=== PATIENT | female | born 1940 | race Caucasian/White ===

== ENCOUNTER 2018-03-20 06:09 | Day surgery (SDC) | payer MEDICARE ==
[~2018-03-20] VITALS: Ht 157.5 cm; Wt 61.1 kg
[~2018-03-20 06:09] MED LIST: ALBU8.5H8 IH; ASPI-555 PO; GLIM4TAB3 PO; METF500T6 PO
[2018-03-20] MEDS ORDERED: SODIUM CHLORIDE 0.9% 1000ML 1,000 ML IV ONE (06:48)
[2018-03-20 07:06] VITALS: BP 114/55
[2018-03-20] MEDS ORDERED: PROPOFOL 10 MG/ML 20ML VIAL IV ONE (08:31)
[2018-03-20] MEDS ORDERED: PHENYLEPHRINE HCL 10 MG/ML 1ML VIAL IV ONE (08:42)
[2018-03-20 08:51] VITALS: BP 97/42
== END 2018-03-20 09:19 ==
LOC: DAH 06:09 → ENDO 06:09
PROVIDERS: ATTEND Internal Medicine Gastroenterology
DX: Z12.11 Encounter for screening for malignant neoplasm of colon (principal); K57.30 Diverticulosis of large intestine without perforation or abscess without bleeding; Z98.0 Intestinal bypass and anastomosis status; Z85.038 Personal history of other malignant neoplasm of large intestine; I25.10 Atherosclerotic heart disease of native coronary artery without angina pectoris; E11.9 Type 2 diabetes mellitus without complications; J44.9 Chronic obstructive pulmonary disease, unspecified; Z90.49 Acquired absence of other specified parts of digestive tract; Z95.1 Presence of aortocoronary bypass graft; Z98.890 Other specified postprocedural states; Z83.3 Family history of diabetes mellitus; Z88.8 Allergy status to other drugs, medicaments and biological substances; F17.210 Nicotine dependence, cigarettes, uncomplicated; Z68.26 Body mass index [BMI] 26.0-26.9, adult; Z79.84 Long term (current) use of oral hypoglycemic drugs
CPT/HCPCS: 45380; 82948 ×2; 88305; 93005; A4606; J2370; J2704; J7030

== ENCOUNTER → 2018-08-22 | Outpatient (CLI) | payer MEDICARE ==
[~2018-08-22] MED LIST changes: +METF-444 PO; -METF500T6 PO
== END | disposition home or self-care (01) ==
LOC: RAH 09:42
PROVIDERS: ATTEND Internal Medicine Hematology & Oncology
DX: R22.32 Localized swelling, mass and lump, left upper limb (principal)
CPT/HCPCS: 76882

== ENCOUNTER 2020-01-26 18:32 | Observation (INO) | payer MEDICARE ==
[~2020-01-26] VITALS: Ht 157.5 cm; Wt 59.7 kg
[2020-01-26] MEDS: PANTOPRAZOLE SODIUM 40 MG TABLET.DR PO SCH (09:40)
[~2020-01-26 18:32] MED LIST changes: -GLIM4TAB3 PO; +GLIM4TAB36 PO
[2020-01-26 19:23] LABS: CREATININE 1.4 mg/dL (0.5-1.5)
[2020-01-26 19:27] LABS: BASOPHILS % (AUTO) 0.5 % (0.0-5.0); EOSINOPHILS % (AUTO) 0.5 % (0.0-8.0); HEMATOCRIT 34.5 % (36-48); LYMPHOCYTES % (AUTO) 25.6 % (21.0-51.0); MEAN CORPUSCULAR HEMOGLOBIN 33.5 pg (27.0-33.0); MEAN CORPUSCULAR HGB CONC 33.3 g/dL (32.0-36.0); MEAN CORPUSCULAR VOLUME 100.6 fL (79-99); MONOCYTES % (AUTO) 10.1 % (3.0-13.0); PLATELET COUNT (AUTO) 177 K/uL (130-400); RED BLOOD CELL COUNT(AUTO) 3.43 MIL/uL (4.00-5.50); RED CELL DISTRIBUTION WIDTH 13.6 % (11.0-15.5); WHITE BLOOD COUNT (AUTO) 6.3 K/uL (4.8-10.8)
[2020-01-26 19:28] LABS: ALBUMIN 3.8 g/dL (3.5-5.0); BILIRUBIN,TOTAL 0.3 mg/dL (0.2-1.0); TOTAL PROTEIN, SERUM 7.1 g/dL (6.0-8.3)
[2020-01-26 19:30] LABS: PARTIAL THROMBOPLASTIN TIME 23.5 SEC (26.3-35.5); PROTHROMBIN TIME 10.5 SEC (9.6-11.6)
[2020-01-26 19:35] LABS: B-TYPE NATRIURETIC PEPTIDE 345 pg/mL (0-100)
[2020-01-26 19:45] LABS: APPEARANCE,URINE Clear (CLEAR); BILIRUBIN,URINE Negative (NEGATIVE); COLOR,URINE Yellow (YELLOW); GLUCOSE, URINE (UA) Negative (NEGATIVE); KETONES,URINE Negative (NEGATIVE); LEUKOCYTE ESTERASE ,URINE Moderate (NEGATIVE); NITRATE,URINE Negative (NEGATIVE); OCCULT BLOOD,URINE Negative (NEGATIVE); PROTEIN,URINE Negative (NEGATIVE); UROBILINOGEN,URINE 0.2 mg/dL (0.2-1.0)
[2020-01-26] MEDS ORDERED: ASPIRIN 325 MG TABLET ONE (20:09)
[2020-01-26 20:14] LABS: RBC,URINE 0-1 /HPF (0-1)
[2020-01-26] MEDS ORDERED: IPRATROPIUM/ALBUTEROL SULFATE 3 ML SOLUTION IH ONE (20:14)
[2020-01-26 20:15] LABS: SQUAMOUS EPITHELIAL CELL,UR Rare /HPF (0-2)
[2020-01-26 20:16] LABS: BACTERIA,URINE Moderate /HPF (None Seen)
[2020-01-26] MEDS ORDERED: LEVOFLOXACIN 500 MG/D5W 100 ML 100 ML ONE (22:29)
[2020-01-26] MEDS ORDERED: NITROGLYCERIN 1GM/1 INCH PACKET TD ONE (22:38)
[2020-01-26] MEDS ORDERED: METHYLPREDNISOLONE SOD SUCC 125MG/2ML VIAL ONE (22:38)
[2020-01-26] MEDS ORDERED: PANTOPRAZOLE SODIUM 40 MG TABLET.DR ONE (23:07)
[2020-01-26] MEDS ORDERED: METHYLPREDNISOLONE SOD SUCC 40MG/ML 1ML IVP SCH (23:26)
[2020-01-26] MEDS ORDERED: ONDANSETRON HCL 4 MG/2 ML VIAL IVP PRN (23:30)
[2020-01-26] MEDS ORDERED: ACETAMINOPHEN 325 MG TAB PO PRN (23:30)
[2020-01-26] MEDS ORDERED: SODIUM CHLORIDE 0.9% 1000ML 1,000 ML IV SCH (23:30)
[2020-01-26] MEDS ORDERED: IPRATROPIUM/ALBUTEROL SULFATE 3 ML SOLUTION IH PRN (23:45)
[2020-01-27] MEDS: IPRATROPIUM/ALBUTEROL SULFATE 3 ML SOLUTION IH SCH ×3 (01:09→11:20)
[2020-01-27 02:15] LABS: TROPONIN I 0.05 ng/mL (0.00-0.06)
[2020-01-27] MEDS ORDERED: IPRATROPIUM/ALBUTEROL SULFATE 3 ML SOLUTION IH ONE (06:44)
[2020-01-27] MEDS ORDERED: ASPIRIN 81MG TAB.CHEW ONE (07:29)
[2020-01-27] MEDS ORDERED: METHYLPREDNISOLONE SOD SUCC 40MG/ML 1ML ONE (07:29)
[2020-01-27] MEDS ORDERED: SODIUM CHLORIDE 0.9% 1000ML 1,000 ML IV ONE (07:37)
[2020-01-27 08:03] LABS: BASOPHILS % (AUTO) 0.4 % (0.0-5.0); EOSINOPHILS % (AUTO) 0.4 % (0.0-8.0); HEMATOCRIT 31.8 % (36-48); LYMPHOCYTES % (AUTO) 33.5 % (21.0-51.0); MEAN CORPUSCULAR HEMOGLOBIN 32.5 pg (27.0-33.0); MEAN CORPUSCULAR HGB CONC 32.4 g/dL (32.0-36.0); MEAN CORPUSCULAR VOLUME 100.3 fL (79-99); MONOCYTES % (AUTO) 10.8 % (3.0-13.0); NEUTROPHILS % (AUTO) 54.7 % (40.0-77.0); PLATELET COUNT (AUTO) 150 K/uL (130-400); RED BLOOD CELL COUNT(AUTO) 3.17 MIL/uL (4.00-5.50); RED CELL DISTRIBUTION WIDTH 13.5 % (11.0-15.5); WHITE BLOOD COUNT (AUTO) 4.7 K/uL (4.8-10.8)
[2020-01-27 08:26] LABS: CREATININE 1.2 mg/dL (0.5-1.5)
[2020-01-27 08:29] LABS: ALBUMIN 3.2 g/dL (3.5-5.0); BILIRUBIN,TOTAL 0.3 mg/dL (0.2-1.0); TOTAL PROTEIN, SERUM 6.2 g/dL (6.0-8.3)
[2020-01-27] MEDS ORDERED: METHYLPREDNISOLONE SOD SUCC 40MG/ML 1ML IVP SCH (09:00)
[2020-01-27] MEDS ORDERED: ASPIRIN 81MG TAB.CHEW PO SCH (09:00)
[2020-01-27 09:30] VITALS: BP 116/70
[2020-01-27] MEDS: PANTOPRAZOLE SODIUM 40 MG TABLET.DR PO SCH (09:40)
[2020-01-27] MEDS ORDERED: METFORMIN HCL 500 MG TABLET PO SCH (10:52)
[2020-01-27 11:00] VITALS: BP 114/44
[2020-01-27] MEDS ORDERED: GLIMEPIRIDE 2 MG TABLET PO SCH (11:12)
[2020-01-27] MEDS ORDERED: INSULIN HUMULIN R 100 UNIT/ML 3ML SQ SCH (11:30)
[2020-01-27] MEDS ORDERED: ROSU10TA22 PO (11:41)
[2020-01-27] MEDS ORDERED: TORS5TAB12 PO (11:41)
[2020-01-27] MEDS ORDERED: MULT-1192 PO (11:41)
[2020-01-27] MEDS ORDERED: PRED20TA3 PO (14:23)
[2020-01-27] MEDS ORDERED: LEVO500T2 PO (14:23)
--- NOTE | 2020-01-27 16:28 | NUR ---
pt stated understanding of all d/c instructions including antibiotic perscription for uti and steroid script for copd exacerbation; iv access removed and pt's here to take her home; she wants to eat prior to leaving; she undrstands to call tuesday and make f/u appointment with dr ramos and return to ed for any complications.
[2020-01-28] MEDS ORDERED: ASPIRIN 81 MG EC TAB PO SCH (09:00)
[2020-01-28] MEDS ORDERED: LEVOFLOXACIN 500 MG/D5W 100 ML 100 ML IV SCH (21:00)
== END 2020-01-27 16:45 | disposition home or self-care (01) ==
LOC: EDH 18:32 → EDHIP 22:55 → INTOOBSV 22:55 → 4BH 01-27 09:13
PROVIDERS: ADMIT Internal Medicine Critical Care Medicine; ATTEND Internal Medicine Critical Care Medicine
DX: J42 Unspecified chronic bronchitis (principal); N39.0 Urinary tract infection, site not specified; E11.9 Type 2 diabetes mellitus without complications; C18.9 Malignant neoplasm of colon, unspecified; I25.10 Atherosclerotic heart disease of native coronary artery without angina pectoris; Z95.1 Presence of aortocoronary bypass graft; Z88.5 Allergy status to narcotic agent; Z90.49 Acquired absence of other specified parts of digestive tract; Z72.0 Tobacco use
CPT/HCPCS: 36415 ×2; 71045 ×2; 80053 ×2; 81001; 82150; 82550 ×2; 82948; 83605; 83690; 83874; 83880; 84484 ×3; 85025 ×2; 85610; 85730; 87040 ×2; 87077; 87088; 87186; 87804 ×2; 93005; 94640 ×4; 94664; 99291; G0378 ×3; J1956; J2920; J2930; J7030

== ENCOUNTER 2020-01-31 04:29 | Emergency (ER) | payer MEDICARE ==
[~2020-01-31 04:29] MED LIST changes: +LEVO500T2 PO; +MULT-1192 PO; +PRED20TA3 PO; +ROSU10TA22 PO; +TORS5TAB12 PO
[2020-01-31] MEDS ORDERED: LIDOCAINE HCL 2% VISCOUS 15 ML UDCUP ONE (04:58)
[2020-01-31] MEDS ORDERED: MAG HYDROX/AL HYDROX/SIMETH ES 30 ML SUSP UDCUP ONE (04:58)
[2020-01-31 05:16] LABS: BASOPHILS % (AUTO) 0.1 % (0.0-5.0); HEMATOCRIT 32.1 % (36-48); LYMPHOCYTES % (AUTO) 5.1 % (21.0-51.0); MEAN CORPUSCULAR HGB CONC 32.7 g/dL (32.0-36.0); MEAN CORPUSCULAR VOLUME 100.9 fL (79-99); NEUTROPHILS % (AUTO) 89.5 % (40.0-77.0); PLATELET COUNT (AUTO) 176 K/uL (130-400); RED BLOOD CELL COUNT(AUTO) 3.18 MIL/uL (4.00-5.50); RED CELL DISTRIBUTION WIDTH 13.8 % (11.0-15.5); WHITE BLOOD COUNT (AUTO) 9.1 K/uL (4.8-10.8)
[2020-01-31 05:24] LABS: CREATININE 1.6 mg/dL (0.5-1.5); POTASSIUM 4.2 mmol/L (3.5-5.1)
[2020-01-31 05:41] LABS: B-TYPE NATRIURETIC PEPTIDE 237 pg/mL (0-100)
== END 2020-01-31 06:24 | disposition home or self-care (01) ==
LOC: EDH 04:29
DX: K21.0 Gastro-esophageal reflux disease with esophagitis (principal); E11.9 Type 2 diabetes mellitus without complications; Z85.038 Personal history of other malignant neoplasm of large intestine; Z95.1 Presence of aortocoronary bypass graft; Z88.6 Allergy status to analgesic agent; Z72.0 Tobacco use
CPT/HCPCS: 36415; 71045; 80048; 83880; 84484; 85025; 93005

== ENCOUNTER 2020-06-09 10:34 | Emergency (ER) | payer MEDICARE ==
[~2020-06-09 10:34] MED LIST changes: -ASPI-555 PO; +ASPI-556 PO
[2020-06-09 12:22] LABS: BASOPHILS % (AUTO) 0.3 % (0.0-5.0); EOSINOPHILS % (AUTO) 0.5 % (0.0-8.0); HEMATOCRIT 35.9 % (36-48); LYMPHOCYTES % (AUTO) 19.8 % (21.0-51.0); MEAN CORPUSCULAR HEMOGLOBIN 32.3 pg (27.0-33.0); MEAN CORPUSCULAR HGB CONC 33.1 g/dL (32.0-36.0); MEAN CORPUSCULAR VOLUME 97.6 fL (79-99); NEUTROPHILS % (AUTO) 68.9 % (40.0-77.0); PLATELET COUNT (AUTO) 198 K/uL (130-400); RED BLOOD CELL COUNT(AUTO) 3.68 MIL/uL (4.00-5.50); WHITE BLOOD COUNT (AUTO) 6.6 K/uL (4.8-10.8)
[2020-06-09 12:37] LABS: CREATININE 1.2 mg/dL (0.5-1.5); POTASSIUM 3.9 mmol/L (3.5-5.1)
[2020-06-09 12:39] LABS: INR 0.99 (0.85-1.15); PARTIAL THROMBOPLASTIN TIME 24.5 SEC (26.3-35.5); PROTHROMBIN TIME 10.7 SEC (9.6-11.6)
[2020-06-09 12:46] LABS: ALBUMIN 3.5 g/dL (3.5-5.0); BILIRUBIN,TOTAL 0.6 mg/dL (0.2-1.0); TOTAL PROTEIN, SERUM 6.6 g/dL (6.0-8.3)
[2020-06-09 13:04] LABS: B-TYPE NATRIURETIC PEPTIDE 1230 pg/mL (0-100)
[2020-06-09] MEDS ORDERED: FUROSEMIDE 10 MG/ML 4ML VIAL ONE (13:29)
== END 2020-06-09 15:18 | disposition home or self-care (01) ==
LOC: EDH 10:34
DX: J90 Pleural effusion, not elsewhere classified (principal); M79.89 Other specified soft tissue disorders; E11.9 Type 2 diabetes mellitus without complications; K21.9 Gastro-esophageal reflux disease without esophagitis; Z87.891 Personal history of nicotine dependence; Z88.6 Allergy status to analgesic agent
CPT/HCPCS: 36415; 71045; 71250; 80053; 82550; 83880; 84484; 85025; 85610; 85730; 93005; 93971; 96374; 99285; J1940

== ENCOUNTER 2020-06-12 08:40 | Inpatient (IN) | payer MEDICARE ==
[~2020-06-12] VITALS: Ht 154.9 cm; Wt 53.5 kg
[2020-06-12 09:31] LABS: BASOPHILS % (AUTO) 0.1 % (0.0-5.0); LYMPHOCYTES % (AUTO) 7.2 % (21.0-51.0); MEAN CORPUSCULAR HEMOGLOBIN 32.4 pg (27.0-33.0); MEAN CORPUSCULAR HGB CONC 33.4 g/dL (32.0-36.0); MEAN CORPUSCULAR VOLUME 96.9 fL (79-99); MONOCYTES % (AUTO) 4.2 % (3.0-13.0); NEUTROPHILS % (AUTO) 87.9 % (40.0-77.0); PLATELET COUNT (AUTO) 219 K/uL (130-400); RED BLOOD CELL COUNT(AUTO) 3.92 MIL/uL (4.00-5.50); RED CELL DISTRIBUTION WIDTH 13.1 % (11.0-15.5); WHITE BLOOD COUNT (AUTO) 9.6 K/uL (4.8-10.8)
[2020-06-12 10:08] LABS: ALBUMIN 4.1 g/dL (3.5-5.0); BILIRUBIN,TOTAL 0.9 mg/dL (0.2-1.0); CREATININE 1.4 mg/dL (0.5-1.5); POTASSIUM 4.2 mmol/L (3.5-5.1); TOTAL PROTEIN, SERUM 7.6 g/dL (6.0-8.3)
[2020-06-12 10:09] LABS: INR 0.99 (0.85-1.15); PARTIAL THROMBOPLASTIN TIME 27.1 SEC (26.3-35.5); PROTHROMBIN TIME 10.7 SEC (9.6-11.6)
[2020-06-12] MEDS ORDERED: FUROSEMIDE 10 MG/ML 4ML VIAL ONE (11:11)
[2020-06-12] MEDS ORDERED: DILTIAZEM HCL 125 MG/25 ML VIAL IV ONE (11:13)
[2020-06-12] MEDS ORDERED: DILTIAZEM HCL 5 MG/ML 10 ML VIAL IV ONE (11:13)
[2020-06-12] MEDS ORDERED: INSULIN HUMULIN R 100 UNIT/ML 3ML ONE (11:13)
[2020-06-12] MEDS ORDERED: SODIUM CHLORIDE 0.9% 100 ML IV ONE (11:14)
[2020-06-12] MEDS ORDERED: PANT40TA25 PO (15:28)
[2020-06-12] MEDS ORDERED: GLIP5TAB11 PO (15:28)
[2020-06-12 15:49] VITALS: BP 103/82
[2020-06-12] MEDS ORDERED: LACTULOSE 20 GM/30 ML UDCUP PO PRN (16:45)
[2020-06-12] MEDS ORDERED: ZOLPIDEM TARTRATE 5 MG TAB PO PRN (16:45)
[2020-06-12] MEDS ORDERED: LOPERAMIDE 1 MG/7.5 ML UDCUP PO PRN (16:45)
[2020-06-12] MEDS ORDERED: ACETAMINOPHEN 325 MG TAB PO PRN (16:45)
[2020-06-12] MEDS ORDERED: ONDANSETRON HCL 4 MG/2 ML VIAL IVP PRN (16:45)
[2020-06-12] MEDS ORDERED: HYDRALAZINE HCL 20 MG/ML VIAL IV PRN (16:45)
[2020-06-12] MEDS: METOPROLOL TARTRATE 1 MG/ML 5ML VIAL IV ONE ×2 (17:41→17:51)
[2020-06-12] MEDS ORDERED: DIGOXIN 250 MCG/ML 2ML AMP ONE (17:41)
[2020-06-12 17:55] VITALS: BP 103/43
[2020-06-12 18:00] VITALS: BP 79/44
[2020-06-12] MEDS: DIGOXIN 250 MCG/ML 2ML AMP IV SCH ×2 (18:00→19:33)
[2020-06-12 18:15] VITALS: BP 84/38
[2020-06-12 18:30] VITALS: BP 90/44
--- NOTE | 2020-06-12 19:15 | NUR ---
RECEIVED REPORT FROM STEFANO AGGARWAL. PT HAS NEW ONSET OF AFIB RVR. PT HAVING LOW BLOOD PRESSURE 80s/50s. PT DENIES CHEST PAIN OR ANY DISCOMFORT.
[2020-06-12 19:40] VITALS: BP 90/50
[2020-06-12] MEDS: FUROSEMIDE 10 MG/ML 4ML VIAL IV SCH (20:04)
[2020-06-12] MEDS: APIXABAN 5 MG TABLET PO SCH (20:11)
[2020-06-12] MEDS ORDERED: METOPROLOL TARTRATE 1 MG/ML 5ML VIAL IV SCH (20:30)
[2020-06-12] MEDS: METOPROLOL TARTRATE 25 MG TAB PO SCH (21:00)
[2020-06-12] MEDS ORDERED: DEXTROSE 50%-WATER 50 ML DISP.SYRIN IV PRN (23:45)
[2020-06-12] MEDS ORDERED: GLUCAGON 1MG KIT 1 MG ML IM PRN (23:45)
[2020-06-13] VITALS (7 sets, daily range): BP systolic 79–106; BP diastolic 40–65
[2020-06-13] MEDS: FUROSEMIDE 10 MG/ML 4ML VIAL IV SCH ×2 (04:45→16:32)
[2020-06-13] MEDS: INSULIN HUMULIN R 100 UNIT/ML 3ML SQ SCH ×4 (05:59→21:00)
[2020-06-13 06:26] LABS: HEMATOCRIT 35.7 % (36-48); MEAN CORPUSCULAR HEMOGLOBIN 31.8 pg (27.0-33.0); MEAN CORPUSCULAR HGB CONC 32.5 g/dL (32.0-36.0); MEAN CORPUSCULAR VOLUME 97.8 fL (79-99); RED BLOOD CELL COUNT(AUTO) 3.65 MIL/uL (4.00-5.50); RED CELL DISTRIBUTION WIDTH 13.1 % (11.0-15.5)
[2020-06-13 06:38] LABS: INR 1.04 (0.85-1.15); PARTIAL THROMBOPLASTIN TIME 26.9 SEC (26.3-35.5); PROTHROMBIN TIME 11.2 SEC (9.6-11.6)
[2020-06-13 07:03] LABS: ALBUMIN 3.1 g/dL (3.5-5.0); BILIRUBIN,TOTAL 0.5 mg/dL (0.2-1.0); CREATININE 1.2 mg/dL (0.5-1.5); MAGNESIUM 1.6 mg/dL (1.80-2.40); PHOSPHORUS 3.9 mg/dL (2.5-4.9); TOTAL PROTEIN, SERUM 6.3 g/dL (6.0-8.3)
[2020-06-13] MEDS: ATORVASTATIN CALCIUM 20 MG TABLET PO SCH (09:02)
[2020-06-13] MEDS: ASPIRIN 81 MG EC TAB PO SCH (09:02)
[2020-06-13] MEDS: METOPROLOL TARTRATE 25 MG TAB PO SCH ×3 (09:02→21:49)
[2020-06-13] MEDS: PANTOPRAZOLE SODIUM 40 MG TABLET.DR PO SCH (09:02)
[2020-06-13] MEDS: APIXABAN 5 MG TABLET PO SCH ×2 (09:02→21:48)
--- NOTE | 2020-06-13 14:27 | NUR ---
CHART CHECK COMPLETED. Pt IS AN 80 Y.O. FEMALE ADMITTED SECONDARY TO CHEST PAIN. Pt HAS A PAST MEDICAL HISTORY SIGNIFICANT FOR DM, COLON CA S/P RESECTION, CAD S/P CABG, AND SMOKER. Pt CURRENTLY ON REGULAR TEXTURE, THIN LIQUID DIET (HEART HEALTHY). PLEASE REQUEST FORMAL SKILLED SPEECH/SWALLOW EVALUATION IF Pt PRESENTS WITH +S/S OF ASPIRATION SUCH COUGH RESPONSE, THROAT CLEAR, OR WET VOCAL QUALITY. Addendum: 06/13/20 at 1432 by AMPARO SHORT, [facility] Amended: Links added.
--- NOTE | 2020-06-13 19:45 | NUR ---
cm note met with patient and states resides athome with spouse, independent with adls and uses walker for ambulatioin, has w/c and shower chair she uses at times. staes she cooks, and drives. dc plan is back to home at nd. no dc needs. Addendum: 06/13/20 at 1948 by ARIANNE ENGLISH CM Amended: Links added.
[2020-06-13] MEDS: MAGNESIUM 2GM PREMIX 50ML 50 ML IV SCH (21:52)
[2020-06-13] MEDS: DIGOXIN 125 MCG TABLET PO SCH (21:59)
[2020-06-14] VITALS (8 sets, daily range): BP systolic 77–114; BP diastolic 38–61
[2020-06-14] MEDS ORDERED: FUROSEMIDE 10 MG/ML 4ML VIAL IV SCH (04:45)
--- NOTE | 2020-06-14 05:10 | NUR ---
NEW ORDER FROM [facility], ASHLY 500ML BOLUS, D/T PT CONTINUED WITH LOW BLOOD PRESSURES, 70s/50s - 80s/50s. HEART RATE RANGES FROM 120s-140s. ASYMPTOMATIC. NEW ORDER TO NOT GIVE LASIX 20MG THIS AM. PT TO BE STRICT BEDREST.
[2020-06-14] MEDS ORDERED: SODIUM CHLORIDE 0.9% 500ML 500 ML IV ONE ×2 (05:15)
[2020-06-14] MEDS: INSULIN HUMULIN R 100 UNIT/ML 3ML SQ SCH ×4 (06:09→20:37)
[2020-06-14] MEDS: DIGOXIN 125 MCG TABLET PO SCH (08:39)
[2020-06-14] MEDS: APIXABAN 5 MG TABLET PO SCH ×2 (08:39→20:27)
[2020-06-14] MEDS: ATORVASTATIN CALCIUM 20 MG TABLET PO SCH (08:40)
[2020-06-14] MEDS: METOPROLOL TARTRATE 25 MG TAB PO SCH ×2 (08:40→13:41)
[2020-06-14] MEDS: ASPIRIN 81 MG EC TAB PO SCH (08:40)
[2020-06-14] MEDS: PANTOPRAZOLE SODIUM 40 MG TABLET.DR PO SCH (08:40)
[2020-06-14] MEDS ORDERED: AMIODARONE HCL 900 MG in DEXTROSE 5%-WATER 500 ML IV SCH (11:00)
[2020-06-14] MEDS ORDERED: AMIODARONE HCL 150 MG in DEXTROSE 5%-WATER 100 ML IV SCH (11:00)
[2020-06-14] MEDS ORDERED: METOPROLOL TARTRATE 1 MG/ML 5ML VIAL IV PRN (11:00)
[2020-06-14] MEDS ORDERED: AMIODARONE HCL 450 MG in DEXTROSE 5%-WATER 250 ML IV SCH (11:15)
[2020-06-14 11:34] LABS: CREATININE 1.3 mg/dL (0.5-1.5)
[2020-06-14 11:39] LABS: ALBUMIN 3.1 g/dL (3.5-5.0); BILIRUBIN,TOTAL 0.5 mg/dL (0.2-1.0); TOTAL PROTEIN, SERUM 6.4 g/dL (6.0-8.3)
--- NOTE | 2020-06-14 13:26 | NUR ---
benchmark paged jackson
[2020-06-14] MEDS ORDERED: FUROSEMIDE 10 MG/ML 2ML VIAL ONE (13:46)
[2020-06-14] MEDS ORDERED: FUROSEMIDE 10 MG/ML 2ML VIAL IV STA (14:15)
[2020-06-14] MEDS ORDERED: PHENYLEPHRINE HCL 100 MG in SODIUM CHLORIDE 0.9% 250 ML IV PRN (15:30)
[2020-06-14] MEDS: FUROSEMIDE 10 MG/ML 2ML VIAL IV SCH (20:27)
[2020-06-15] MEDS: METOPROLOL TARTRATE 25 MG TAB PO SCH ×4 (00:48→20:14)
[2020-06-15] MEDS: FUROSEMIDE 10 MG/ML 2ML VIAL IV SCH ×2 (04:20→11:10)
[2020-06-15 04:30] VITALS: BP 91/37
[2020-06-15] MEDS: INSULIN HUMULIN R 100 UNIT/ML 3ML SQ SCH ×4 (05:55→20:35)
[2020-06-15 08:00] VITALS: BP 107/50
[2020-06-15] MEDS: PANTOPRAZOLE SODIUM 40 MG TABLET.DR PO SCH (08:30)
[2020-06-15] MEDS: ATORVASTATIN CALCIUM 20 MG TABLET PO SCH (08:30)
[2020-06-15] MEDS: APIXABAN 5 MG TABLET PO SCH ×2 (08:31→20:15)
[2020-06-15] MEDS: ASPIRIN 81 MG EC TAB PO SCH (08:31)
[2020-06-15] MEDS: DIGOXIN 125 MCG TABLET PO SCH (08:33)
--- NOTE | 2020-06-15 11:05 | NUR ---
DR. JONES IS IN TO SEE PATIENT.
[2020-06-15 12:00] VITALS: BP 106/49
--- NOTE | 2020-06-15 12:34 | NUR ---
KATELYNN FOSTER IS MAKING HER ROUNDS.
[2020-06-15 16:00] VITALS: BP 101/48
[2020-06-15 19:30] VITALS: BP 112/48
[2020-06-15 23:30] VITALS: BP 106/49
[2020-06-16] VITALS (8 sets, daily range): BP systolic 96–119; BP diastolic 47–95
--- NOTE | 2020-06-16 03:01 | NUR ---
STATUS Pt sleeping,respirations even and unlabored.Heart rate a fib 100's with frequent PVC's.Pt ambulates to bathroom with assistance.
--- NOTE | 2020-06-16 03:47 | NUR ---
PATIENT Pt states,"If my son and my calls,don't give them any more information,I have a daughter and I will give her information."
[2020-06-16 06:22] LABS: CREATININE 1.3 mg/dL (0.5-1.5); MAGNESIUM 1.7 mg/dL (1.80-2.40); POTASSIUM 3.9 mmol/L (3.5-5.1); THYROID STIMULATING HORMONE 1.95 uIU/mL (0.36-3.74)
[2020-06-16] MEDS: INSULIN HUMULIN R 100 UNIT/ML 3ML SQ SCH ×4 (06:25→21:00)
[2020-06-16] MEDS: MAGNESIUM 2GM PREMIX 50ML 50 ML IV SCH (06:28)
[2020-06-16] MEDS: ASPIRIN 81 MG EC TAB PO SCH (08:17)
[2020-06-16] MEDS: APIXABAN 5 MG TABLET PO SCH ×2 (08:18→21:14)
[2020-06-16] MEDS: DIGOXIN 125 MCG TABLET PO SCH (08:20)
[2020-06-16] MEDS: ATORVASTATIN CALCIUM 20 MG TABLET PO SCH (08:27)
[2020-06-16] MEDS: METOPROLOL TARTRATE 25 MG TAB PO SCH ×3 (08:28→21:15)
[2020-06-16] MEDS: PANTOPRAZOLE SODIUM 40 MG TABLET.DR PO SCH (08:28)
[2020-06-16] MEDS ORDERED: FUROSEMIDE 20 MG TABLET PO SCH (09:00)
[2020-06-16] MEDS: PREDNISONE 20 MG TABLET PO SCH (09:01)
--- NOTE | 2020-06-16 13:02 | NUR ---
CM Note: [facility] pending approval. HH will f/u w/PCP CM spoke to pt's spouse, informed MD recommends home w/HH, made aware HH will have to follow up w/PC Dr Shaw Braun for continuity of care order as PCP will want to have a face to face appointment first. Obtained telephone consent ISAIAH for [facility]. Faxed order, clinicals to [facility], confirmation received. Spoke to Darlene w/[facility] received request, made aware of MD order in hospital, Darlene verbaljim will follow up with Dr Braun for verbal order. Pt pending approval for [facility]. Primary nurse updated w/POC, instructed to call PCP to schedule MD follow up appointment outpatient prior to pt dc, to inform MD office hospital MD recommends HH at home, [facility] given heads up. CM to cont to follow up.
--- NOTE | 2020-06-16 16:19 | NUR ---
pt f/u appt with DR. JAELYN FIELDS is on Tuesday06/18/20 @ 03:30 PM.
[2020-06-16] MEDS: FUROSEMIDE 20 MG TABLET PO SCH ×3 (18:15→21:14)
[2020-06-16] MEDS ORDERED: METOPROLOL TARTRATE 25 MG TAB PO SCH (21:00)
[2020-06-17] VITALS (7 sets, daily range): BP systolic 91–127; BP diastolic 49–62
[2020-06-17 04:34] LABS: HEMATOCRIT 35.6 % (36-48); MEAN CORPUSCULAR HEMOGLOBIN 31.3 pg (27.0-33.0); MEAN CORPUSCULAR HGB CONC 32.9 g/dL (32.0-36.0); MEAN CORPUSCULAR VOLUME 95.2 fL (79-99); PLATELET COUNT (AUTO) 250 K/uL (130-400); RED BLOOD CELL COUNT(AUTO) 3.74 MIL/uL (4.00-5.50); RED CELL DISTRIBUTION WIDTH 12.6 % (11.0-15.5); WHITE BLOOD COUNT (AUTO) 10.3 K/uL (4.8-10.8)
[2020-06-17 04:49] LABS: ALBUMIN 3.2 g/dL (3.5-5.0); BILIRUBIN,TOTAL 0.5 mg/dL (0.2-1.0); CREATININE 1.4 mg/dL (0.5-1.5); POTASSIUM 4.1 mmol/L (3.5-5.1); TOTAL PROTEIN, SERUM 6.7 g/dL (6.0-8.3)
[2020-06-17 05:51] LABS: BAND NEUTROPHILS % (MANUAL) 2 % (0-2); LYMPHOCYTES % (MANUAL) 18 % (22-44); MONOCYTES % (MANUAL) 5 % (2-9); REACTIVE LYMPHOCYTES 3 % (0-0); SEGMENTED NEUTROPHILS % 72 % (40-70)
[2020-06-17 05:52] LABS: MAN.DIFF COMMENT-IMPRESSION MANUAL DIFFERENTIAL; PLATELET MORPHOLOGY COMMENT ADEQUATE
[2020-06-17] MEDS: INSULIN HUMULIN R 100 UNIT/ML 3ML SQ SCH ×4 (06:03→20:03)
--- NOTE | 2020-06-17 07:30 | NUR ---
ASSESSMENT ENCOUNTERED PT A&OX3, CALM COOPERATIVE AND DOES NOT APPEAR TO BE IN ANY DISTRESS NOR ANY NEURO DEFICITS PRESENT. PT DENIES PAIN, NAUSEA BUT DOES C/O DYSPNEA ON EXERTION. PT IS AMBULATORY, GAIT SLOW BUT STEADY WITH STAND BY ASSIST. PT IS ABLE TO TOLERATE FOODS AND FLUIDS WITH NO THROAT CLEARING OR COUGH. CALL LIGHT WITHIN REACH.
[2020-06-17] MEDS: DIGOXIN 125 MCG TABLET PO SCH (08:24)
[2020-06-17] MEDS: PREDNISONE 20 MG TABLET PO SCH (08:27)
[2020-06-17] MEDS: APIXABAN 5 MG TABLET PO SCH ×2 (08:27→20:02)
[2020-06-17] MEDS: ASPIRIN 81 MG EC TAB PO SCH (08:27)
[2020-06-17] MEDS: FUROSEMIDE 20 MG TABLET PO SCH ×4 (08:27→20:03)
[2020-06-17] MEDS: PANTOPRAZOLE SODIUM 40 MG TABLET.DR PO SCH (08:27)
[2020-06-17] MEDS: METOPROLOL TARTRATE 25 MG TAB PO SCH ×3 (10:05→20:02)
[2020-06-17] MEDS: ATORVASTATIN CALCIUM 20 MG TABLET PO SCH (20:02)
[2020-06-17] MEDS: AMIODARONE HCL 200 MG TABLET PO SCH (20:03)
[2020-06-18] VITALS (7 sets, daily range): BP systolic 97–121; BP diastolic 46–75
[2020-06-18] MEDS: INSULIN HUMULIN R 100 UNIT/ML 3ML SQ SCH ×4 (06:02→20:48)
[2020-06-18 07:31] LABS: BASOPHILS % (AUTO) 0.4 % (0.0-5.0); EOSINOPHILS % (AUTO) 0.3 % (0.0-8.0); LYMPHOCYTES % (AUTO) 24.5 % (21.0-51.0); MEAN CORPUSCULAR HEMOGLOBIN 31.8 pg (27.0-33.0); MEAN CORPUSCULAR HGB CONC 33.3 g/dL (32.0-36.0); MEAN CORPUSCULAR VOLUME 95.5 fL (79-99); MONOCYTES % (AUTO) 7.5 % (3.0-13.0); NEUTROPHILS % (AUTO) 66.8 % (40.0-77.0); PLATELET COUNT (AUTO) 263 K/uL (130-400); RED BLOOD CELL COUNT(AUTO) 3.77 MIL/uL (4.00-5.50); RED CELL DISTRIBUTION WIDTH 12.4 % (11.0-15.5); WHITE BLOOD COUNT (AUTO) 10.4 K/uL (4.8-10.8)
[2020-06-18] MEDS: ASPIRIN 81 MG EC TAB PO SCH (09:09)
[2020-06-18] MEDS: PREDNISONE 20 MG TABLET PO SCH (09:09)
[2020-06-18] MEDS: APIXABAN 5 MG TABLET PO SCH ×2 (09:10→20:36)
[2020-06-18] MEDS: ATORVASTATIN CALCIUM 20 MG TABLET PO SCH (09:11)
[2020-06-18] MEDS: FUROSEMIDE 20 MG TABLET PO SCH ×2 (09:11→20:36)
[2020-06-18] MEDS: DIGOXIN 125 MCG TABLET PO SCH (09:11)
[2020-06-18] MEDS: METOPROLOL TARTRATE 25 MG TAB PO SCH ×2 (09:13→14:00)
[2020-06-18] MEDS: AMIODARONE HCL 200 MG TABLET PO SCH ×2 (09:14→20:36)
[2020-06-18] MEDS: PANTOPRAZOLE SODIUM 40 MG TABLET.DR PO SCH (09:15)
[2020-06-19 04:46] VITALS: BP 111/51
[2020-06-19 05:55] LABS: HEMATOCRIT 38.7 % (36-48); MEAN CORPUSCULAR HEMOGLOBIN 31.8 pg (27.0-33.0); MEAN CORPUSCULAR HGB CONC 33.6 g/dL (32.0-36.0); MEAN CORPUSCULAR VOLUME 94.6 fL (79-99); PLATELET COUNT (AUTO) 287 K/uL (130-400); RED BLOOD CELL COUNT(AUTO) 4.09 MIL/uL (4.00-5.50); RED CELL DISTRIBUTION WIDTH 12.5 % (11.0-15.5); WHITE BLOOD COUNT (AUTO) 10.9 K/uL (4.8-10.8)
[2020-06-19] MEDS: INSULIN HUMULIN R 100 UNIT/ML 3ML SQ SCH ×3 (06:08→16:37)
[2020-06-19 06:28] LABS: CREATININE 1.4 mg/dL (0.5-1.5); DIGOXIN 1.28 ng/mL (0.50-2.00); POTASSIUM 3.5 mmol/L (3.5-5.1)
[2020-06-19] MEDS ORDERED: ASPIRIN 81MG TAB.CHEW ONE (07:41)
[2020-06-19] MEDS: APIXABAN 5 MG TABLET PO SCH (07:43)
[2020-06-19] MEDS: FUROSEMIDE 20 MG TABLET PO SCH (07:44)
[2020-06-19] MEDS: AMIODARONE HCL 200 MG TABLET PO SCH (07:44)
[2020-06-19] MEDS: ATORVASTATIN CALCIUM 20 MG TABLET PO SCH (07:44)
[2020-06-19] MEDS: PANTOPRAZOLE SODIUM 40 MG TABLET.DR PO SCH (07:44)
[2020-06-19] MEDS: ASPIRIN 81 MG EC TAB PO SCH (07:49)
[2020-06-19 08:00] VITALS: BP 114/62
[2020-06-19 08:00] LABS: LYMPHOCYTES % (MANUAL) 27 % (22-44); MONOCYTES % (MANUAL) 6 % (2-9); SEGMENTED NEUTROPHILS % 67 % (40-70)
[2020-06-19 08:01] LABS: MAN.DIFF COMMENT-IMPRESSION MANUAL DIFFERENTIAL; PLATELET MORPHOLOGY COMMENT ADEQUATE
[2020-06-19] MEDS ORDERED: METOPROLOL SUCCINATE 50 MG TAB.SR.24H PO SCH (09:00)
[2020-06-19] MEDS: DIGOXIN 125 MCG TABLET PO SCH (09:23)
[2020-06-19 11:09] VITALS: BP 90/51
[2020-06-19 13:05] VITALS: BP 98/44
[2020-06-19] MEDS ORDERED: APIX5TAB PO (15:03)
[2020-06-19] MEDS ORDERED: ATOR20TA65 PO (15:03)
[2020-06-19] MEDS ORDERED: FURO20TA6 PO (15:03)
[2020-06-19] MEDS ORDERED: AMIO200T44 PO (15:03)
[2020-06-19] MEDS ORDERED: DIGO125T71 PO (15:03)
[2020-06-19] MEDS ORDERED: METO50TA9 PO (15:03)
== END 2020-06-19 18:30 | disposition home or self-care (01) | DRG 308 ==
LOC: EDH 08:40 → EDHIP 13:00 → OBSVTOIN 13:00 → INTOOBSV 13:00 → DAHIP 15:32
PROVIDERS: ADMIT Internal Medicine; ATTEND Internal Medicine
DX: I48.0 Paroxysmal atrial fibrillation (principal); I50.43 Acute on chronic combined systolic (congestive) and diastolic (congestive) heart failure; N17.9 Acute kidney failure, unspecified; C18.9 Malignant neoplasm of colon, unspecified; J44.1 Chronic obstructive pulmonary disease with (acute) exacerbation; E11.9 Type 2 diabetes mellitus without complications; K21.9 Gastro-esophageal reflux disease without esophagitis; E83.42 Hypomagnesemia; F17.200 Nicotine dependence, unspecified, uncomplicated; I11.0 Hypertensive heart disease with heart failure; I25.10 Atherosclerotic heart disease of native coronary artery without angina pectoris; I42.9 Cardiomyopathy, unspecified; Z79.01 Long term (current) use of anticoagulants; Z79.84 Long term (current) use of oral hypoglycemic drugs; Z79.899 Other long term (current) drug therapy; Z88.5 Allergy status to narcotic agent; Z90.49 Acquired absence of other specified parts of digestive tract; Z95.1 Presence of aortocoronary bypass graft; M19.90 Unspecified osteoarthritis, unspecified site; E87.70 Fluid overload, unspecified
CPT/HCPCS: 36415; 71045; 71250; 73560; 80048; 80053; 80162; 82550; 82948; 83735; 83880; 84100; 84439; 84443; 84480; 84484; 85025; 85027; 85610; 85730; 93005; 93306; 93356; 93970; 93971; 96374; 97039; 99291; G0378; J0282; J1160; J1815; J1940; J3475; J3490; J7040; J7060